=== PATIENT | male | born 1960 | race Two or more races ===

== ENCOUNTER 2017-02-08 13:13 | Emergency (ER) | payer OTHER ==
[2017-02-08 13:21] VITALS: PULSE 70; TEMP 98.2
--- NOTE | 2017-02-08 13:29 | EDPHY ---
H & P Stated Complaint: l side and abd pain/increased post working out last week Time Seen by Provider: 02/08/17 13:28 HPI/ROS: CHIEF COMPLAINT: Left flank and abdominal pain HISTORY OF PRESENT ILLNESS: The patient presents to the ED with a 6 day history of progressive left flank abdominal pain. The patient states his symptoms are mild in nature. They worsened with movement. It feels they have worsened after his exercise routine this week. His pain has been fairly constant for the past 2 days. He reports pain in his left sacroiliac area and some mild discomfort in his left lower abdominal quadrant. The patient denies any hematuria or dysuria. The patient denies fever, numbness or weakness. The patient denies any exertional chest pain or shortness of breath. The patient only has a past medical history significant for hypertension. REVIEW OF SYSTEMS: A comprehensive 10 point review of systems is otherwise negative aside from elements mentioned in the history of present illness. Source: Patient - Personal History Current Tetanus/Diphtheria Vaccine: Yes - Medical/Surgical History Hx Asthma: No Hx Chronic Respiratory Disease: No Hx Diabetes: No Hx Cardiac Disease: No Hx Renal Disease: No Hx Cirrhosis: No Hx Alcoholism: No Hx HIV/AIDS: No Hx Splenectomy or Spleen Trauma: No Other PMH: htn - Social History Smoking Status: Never smoked - Physical Exam Exam: General Appearance: Alert, no distress Eyes: Pupils equal and round no pallor or injection ENT, Mouth: Mucous membranes moist Respiratory: There are no retractions, lungs are clear to auscultation Cardiovascular: Regular rate and rhythm Gastrointestinal: Abdomen is soft and nontender, no masses, bowel sounds normal Back: Mild tenderness to palpation left sacroiliac joint Neurological: A&O, normal motor function, normal sensory exam, normal cranial nerves Skin: Warm and dry, no rashes Musculoskeletal: Neck is supple nontender Extremities: symmetrical, full range of motion Constitutional: Initial Vital Signs Temperature (C) 36.8 C 02/08/17 13:18 Heart Rate 70 02/08/17 13:18 Respiratory Rate 18 02/08/17 13:18 Blood Pressure 165/100 H 02/08/17 13:18 O2 Sat (%) 98 02/08/17 13:18 O2 Delivery Mode Room Air Allergies/Adverse Reactions: No Known Allergies Allergy (Unverified 02/08/17 13:18) Home Medications: Medication Instructions Recorded Losartan Potassium 02/08/17 SIMVASTATIN 02/08/17 Medical Decision Making - Diagnostics Imaging Results: Imaging Impressions Abdomen X-Ray 02/08/17 13:35 Impression: 1. Constipation. 2. Degenerative disk and facet arthropathy in the lower lumbar spine. ED Course/Re-evaluation: Patient presents to the ED with 6 days of very vague mild right left flank and left lower quadrant pain. The patient had only minimal tenderness on exam. The patient has normal bowel sounds. The patient is hemodynamically stable. The patient had an IV established. The patient was noted to have some mild microscopic hematuria. The remainder of his laboratory studies are normal. A KUB of his abdomen is also normal. I had a discussion with the patient about the etiology of his symptoms. It is certainly possible he may be experiencing mild renal colic. He has declined a CT scan for further evaluation. His KUB demonstrates no evidence of obvious nephrolithiasis. The patient tells me he does have a history of microscopic hematuria and was told 10 years ago no additional follow-up was indicated. The patient has not had regular follow-up with a primary care provider. I did tell the patient that I thought it would be reasonable to evaluate his symptoms further with a CT scan of the abdomen pelvis to exclude kidney stone versus other intra-abdominal pathology. The patient has declined the study. The patient is a competent decision maker. He does understand that I am not in a position to make further recommendations based upon the uncertainty of the diagnosis surrounding his presentation. It is certainly possible this is simply musculoskeletal pain. This could be a mild presentation of renal colic. The patient could certainly have a more significant process going on his abdomen. The patient would like to see how his symptoms developed over the next several days. He will follow up with his primary care provider. He understands he could return to the ED at any time should he reconsider his decision not to have additional imaging performed. Differential Diagnosis: Differential diagnosis considered includes constipation, hernia, nephrolithiasis , pyelonephritis, myofascial strain - Data Points Laboratory Results: Laboratory Results 02/08/17 13:50 02/08/17 13:50 02/08/17 02/08/17 02/08/17 13:50 13:50 13:50 WBC 6.53 10^3/uL 10^3/uL (3.80-9.50) RBC 5.54 10^6/uL 10^6/uL (4.40-6.38) Hgb 14.6 g/dL g/dL (13.7-17.5) Hct 44.2 % % (40.0-51.0) MCV 79.8 fL L fL (81.5-99.8) MCH 26.4 pg L pg (27.9-34.1) MCHC 33.0 g/dL g/dL (32.4-36.7) RDW 14.6 % % (11.5-15.2) Plt Count 220 10^3/uL 10^3/uL (150-400) MPV 10.0 fL fL (8.7-11.7) Neut % (Auto) 65.2 % % (39.3-74.2) Lymph % (Auto) 23.1 % % (15.0-45.0) [place] % (Auto) 10.3 % % (4.5-13.0) Eos % (Auto) 0.6 % % (0.6-7.6) Baso % (Auto) 0.5 % % (0.3-1.7) Nucleat RBC Rel Count 0.0 % % (0.0-0.2) Absolute Neuts (auto) 4.26 10^3/uL 10^3/uL (1.70-6.50) Absolute Lymphs (auto) 1.51 10^3/uL 10^3/uL (1.00-3.00) Absolute Monos (auto) 0.67 10^3/uL 10^3/uL (0.30-0.80) Absolute Eos (auto) 0.04 10^3/uL 10^3/uL (0.03-0.40) Absolute Basos (auto) 0.03 10^3/uL 10^3/uL (0.02-0.10) Absolute Nucleated RBC 0.00 10^3/uL 10^3/uL (0-0.01) Immature Gran % 0.3 % % (0.0-1.1) Immature Gran # 0.02 10^3/uL 10^3/uL (0.00-0.10) Sodium 139 mEq/L mEq/L (134-144) Potassium 3.9 mEq/L mEq/L (3.5-5.2) Chloride 102 mEq/L mEq/L (97-110) Carbon Dioxide 25 mEq/l mEq/l (22-31) Anion Gap 12 mEq/L mEq/L (8-16) BUN 15 mg/dL mg/dL (7-23) Creatinine 1.0 mg/dL mg/dL (0.7-1.3) Estimated GFR > 60 Glucose 110 mg/dL H mg/dL (70-100) Calcium 9.6 mg/dL mg/dL (8.5-10.4) Urine Color YELLOW Urine Appearance CLEAR Urine pH 6.0 (5.0-7.5) Ur Specific [place] 1.011 (1.002-1.030) Urine Protein NEGATIVE (NEGATIVE) Urine Ketones NEGATIVE (NEGATIVE) Urine Blood NEGATIVE (NEGATIVE) Urine Nitrate NEGATIVE (NEGATIVE) Urine Bilirubin NEGATIVE (NEGATIVE) Urine Urobilinogen NEGATIVE EU EU (0.2-1.0) Ur Leukocyte Esterase NEGATIVE (NEGATIVE) Urine RBC 5-10 /hpf H /hpf (0-3) Urine WBC 1-3 /hpf /hpf (0-3) Ur Epithelial Cells NONE SEEN /lpf /lpf (NONE-1+) Urine Glucose NEGATIVE (NEGATIVE) Departure - Departure Disposition: Home, Routine, Self-Care Clinical Impression: Abdominal pain Condition: Good Instructions: Abdominal Pain (ED) Additional Instructions: 1. Take Ibuprofen or Motrin 600 mg by mouth three times a day. 2. Please return to the emergency department for any worsening symptoms, fever, vomiting or other concerns. You have declined additional CT scan imaging in the emergency department. At this point time the etiology of your symptoms are uncertain. I do recommend following up with your primary care provider for a close recheck this week. You do have some blood in the urine which may require additional workup. Please discuss this with your primary care provider. Referrals: YOUSUF,UNKNOWN [Other] - As per Instructions
[2017-02-08 14:11] LABS: % IMMATURE GRANULYOCYTES 0.3 % (0.0-1.1); ABSOLUTE IMMATURE GRANULOCYTES 0.02 10^3/uL (0.00-0.10); ADD DIFF? NO; ADD MORPH? NO; ADD SCAN? NO; ATYPICAL LYMPHOCYTE FLAG 20 (0-99); FRAGMENT RBC FLAG 0 (0-99); HEMATOCRIT 44.2 % (40.0-51.0); HEMOGLOBIN 14.6 g/dL (13.7-17.5); LEFT SHIFT FLG 0 (0-99); LIPEMIA HEMOLYSIS FLAG 80 (0-99); MEAN CELL HEMOGLOBIN 26.4 pg (27.9-34.1); MEAN CELL VOLUME 79.8 fL (81.5-99.8); PLATELET CLUMPS FLAG 20 (0-99); PLATELET COUNT 220 10^3/uL (150-400); RED BLOOD CELL COUNT 5.54 10^6/uL (4.40-6.38); RED CELL DISTRIBUTION WIDTH 14.6 % (11.5-15.2)
[2017-02-08 14:17] LABS: COLOR YELLOW; LEUKOCYTE ESTERASE,URINE NEGATIVE (NEGATIVE); NITRITE,URINE NEGATIVE (NEGATIVE)
[2017-02-08 14:21] LABS: ANION GAP 12 mEq/L (8-16); CALCIUM 9.6 mg/dL (8.5-10.4); CARBON DIOXIDE 25 mEq/l (22-31); CHLORIDE 102 mEq/L (97-110); GLOMERULAR FILTRATION RATE > 60; GLUCOSE 110 mg/dL (70-100); POTASSIUM 3.9 mEq/L (3.5-5.2); SODIUM 139 mEq/L (134-144)
[2017-02-08 15:35] VITALS: BP 145/92; RESP 16; O2SAT 97
== END 2017-02-08 15:32 | disposition home or self-care (01) ==
DX: R10.9 Unspecified abdominal pain (principal); I10 Essential (primary) hypertension

== ENCOUNTER 2018-03-22 12:22 | Observation (INO) | payer OTHER ==
[2018-03-22 13:51] LABS: PLATELET COUNT 222 10^3/uL (150-400)
--- NOTE | 2018-03-22 13:57 | EDPHY ---
H & P Stated Complaint: "Pinching"feeling abd/chest~2wks;neg echo;stress test for Fri; wants it now Time Seen by Provider: 03/22/18 12:46 HPI/ROS: Chief Complaint: Chest pain HPI: 57-year-old male presenting with 10 days of waxing waning chest pain. Described as a central chest and upper abdominal pain, tightness. It varies from a 2/10 to a 6/10. There are no aggravating or alleviating factors. Does go away when he sleeping at night. Is not exertional. No fevers or chills or cough. He has seen his primary care physician last 2 weeks for this. He is known abnormal ECGs which he says have not changed. He had a similar symptoms about 10 years ago and actually been having this since he was in his 20s has had negative workups in the past. Ten years ago he was [facility] and had negative stress testing catheterization at that time. Denies any fevers or chills. No cough. No leg pain or swelling. No periods of immobility. He did have a normal echocardiogram at [facility] last week. He is scheduled for a stress test next week. He has been compliant with medications. ROS: 10 systems were reviewed and were negative except those elements noted in the HPI. PMH: Chest pain, hypertension Social History: No smoking, no alcohol, no recreational drug use Family History: non-contributory Physical Exam: Gen: Awake, Alert, No Distress HEENT: Nose: no rhinorrhea Eyes: PERRLA, EOMI Mouth: Moist mucosa Neck: Supple, no JVD Chest: nontender, lungs clear to auscultation Heart: S1, S2 normal, no murmur Abd: Soft, non-tender, no guarding Back: no CVA tenderness, no midline tenderness Ext: no edema, non-tender Skin: no rash Neuro: CN II-XII intact, Sensation grossly intact, Strength 5/5 in bilateral upper and lower extremities - Personal History Current Tetanus Diphtheria and Acellular Pertussis (TDAP): Yes - Medical/Surgical History Hx Asthma: No Hx Chronic Respiratory Disease: No Hx Diabetes: No Hx Cardiac Disease: No Hx Renal Disease: No Hx Cirrhosis: No Hx Alcoholism: No Hx HIV/AIDS: No Hx Splenectomy or Spleen Trauma: No Other PMH: hyperlipidemia, htn - Social History Smoking Status: Never smoked Constitutional: Initial Vital Signs Temperature (C) 36.9 C 03/22/18 12:25 Heart Rate 78 03/22/18 12:25 Respiratory Rate 16 03/22/18 12:25 Blood Pressure 159/87 H 03/22/18 12:25 O2 Sat (%) 98 03/22/18 12:25 O2 Delivery Mode Room Air Allergies/Adverse Reactions: No Known Allergies Allergy (Verified 03/22/18 12:27) Home Medications: Medication Instructions Recorded Losartan Potassium 02/08/17 SIMVASTATIN 02/08/17 Aspirin EC [Aspirin EC 81 mg (*)] 81 mg PO DAILY 03/22/18 Medical Decision Making - Diagnostics EKG Interpretation: ECG time 12:41 p.m., sinus rhythm with a rate of 74 normal intervals, there are T-wave inversions in 1 and aVL. There is also T-wave inversions in V3 through V6 with ST depression in V4 5 and 6 which is concerning. QRS complex is consistent with LVH. I have compared this to an ECG from 1 week ago and the T- wave inversions are old however the ST depression is new. I have also compared to an ECG from 10 years ago at which time he did not have any T-wave inversions. Imaging Results: Imaging Impressions Chest X-Ray 03/22/18 13:06 Impression: No acute findings in the chest. ED Course/Re-evaluation: 57-year-old male presenting with chest pain and ECG changes which are concerning. He has been seen by his primary care physician twice in last couple of weeks. Pain is atypical and is constant. However his ECG changes are very concerning. I have discussed with Cardiology TORSTEN. She will discuss with her attending. Patient discussed with Dr. Ross, cardiology. He is requesting the patient be admitted to the hospitalist service. He will consult. I have paged the hospitalist for admission. - Data Points Laboratory Results: Laboratory Results 03/22/18 13:33 03/22/18 13:33 03/22/18 03/22/18 03/22/18 13:40 13:33 13:33 WBC RBC Hgb Hct MCV MCH MCHC RDW Plt Count MPV Neut % (Auto) Lymph % (Auto) [place] % (Auto) Eos % (Auto) Baso % (Auto) Nucleat RBC Rel Count Absolute Neuts (auto) Absolute Lymphs (auto) Absolute Monos (auto) Absolute Eos (auto) Absolute Basos (auto) Absolute Nucleated RBC Immature Gran % Immature Gran # D-Dimer 0.31 ug/mLFEU ug/mLFEU (0.00-0.50) Sodium 139 mEq/L mEq/L (135-145) Potassium 4.2 mEq/L mEq/L (3.3-5.0) Chloride 101 mEq/L mEq/L (97-110) Carbon Dioxide 26 mEq/l mEq/l (22-31) Anion Gap 12 mEq/L mEq/L (8-16) BUN 17 mg/dL mg/dL (7-23) Creatinine 1.0 mg/dL mg/dL (0.7-1.3) Estimated GFR > 60 Glucose 129 mg/dL H mg/dL (70-100) Calcium 9.7 mg/dL mg/dL (8.5-10.4) POC Troponin I 0.01 ng/mL ng/mL (0.00-0.08) 03/22/18 13:33 WBC 7.41 10^3/uL 10^3/uL (3.80-9.50) RBC 6.07 10^6/uL 10^6/uL (4.40-6.38) Hgb 15.5 g/dL g/dL (13.7-17.5) Hct 46.9 % % (40.0-51.0) MCV 77.3 fL L fL (81.5-99.8) MCH 25.5 pg L pg (27.9-34.1) MCHC 33.0 g/dL g/dL (32.4-36.7) RDW 14.3 % % (11.5-15.2) Plt Count 222 10^3/uL 10^3/uL (150-400) MPV 10.2 fL fL (8.7-11.7) Neut % (Auto) 76.5 % H % (39.3-74.2) Lymph % (Auto) 14.0 % L % (15.0-45.0) [place] % (Auto) 8.0 % % (4.5-13.0) Eos % (Auto) 0.4 % L % (0.6-7.6) Baso % (Auto) 0.3 % % (0.3-1.7) Nucleat RBC Rel Count 0.0 % % (0.0-0.2) Absolute Neuts (auto) 5.67 10^3/uL 10^3/uL (1.70-6.50) Absolute Lymphs (auto) 1.04 10^3/uL 10^3/uL (1.00-3.00) Absolute Monos (auto) 0.59 10^3/uL 10^3/uL (0.30-0.80) Absolute Eos (auto) 0.03 10^3/uL 10^3/uL (0.03-0.40) Absolute Basos (auto) 0.02 10^3/uL 10^3/uL (0.02-0.10) Absolute Nucleated RBC 0.00 10^3/uL 10^3/uL (0-0.01) Immature Gran % 0.8 % % (0.0-1.1) Immature Gran # 0.06 10^3/uL 10^3/uL (0.00-0.10) D-Dimer Sodium Potassium Chloride Carbon Dioxide Anion Gap BUN Creatinine Estimated GFR Glucose Calcium POC Troponin I Point of Care Test Results: Chemistry 03/22/18 13:40 POC Troponin I 0.01 ng/mL ng/mL (0.00-0.08) Departure - Departure Disposition: [facility] Inpatient Acute Clinical Impression: Chest pain Condition: Fair Referrals: Marshal Avelar MD [Primary Care Provider] - As per Instructions
[2018-03-22] MEDS ORDERED: LIDOCAINE 1% 300 MG/30 ML SDV ONE (15:00)
[2018-03-22] MEDS ORDERED: MIDAZOLAM 2 MG/2 ML VIAL ONE (15:00)
[2018-03-22] MEDS ORDERED: IOPAMIDOL (ISOVUE-370) 150 ML BTL IV ONE (15:00)
[2018-03-22] MEDS ORDERED: fentaNYL 100 MCG/2 ML INJ ONE (15:00)
--- NOTE | 2018-03-22 15:03 | CPEKG ---
Test Reason : OPEN Blood Pressure : / mmHG Vent. Rate : 074 BPM Atrial Rate : 074 BPM P-R Int : 174 ms QRS Dur : 099 ms QT Int : 414 ms P-R-T Axes : 040 -18 147 degrees QTc Int : 460 ms Sinus rhythm Probable left atrial enlargement LVH with secondary repolarization abnormality Anterior Q waves, possibly due to LVH Confirmed by Jason Gamez ([id number]) on 03/22/2018 3:03:20 PM Referred By: Confirmed By:Jason Gamez
[2018-03-22] MEDS ORDERED: ONDANSETRON DISINTEGRATING 4 MG TAB PO PRN (15:04)
[2018-03-22] MEDS ORDERED: ONDANSETRON 4 MG/2 ML VIAL IVP PRN (15:04)
[2018-03-22] MEDS ORDERED: D5W 1/2 NS 1,000 ML IV SCH (15:15)
[2018-03-22] MEDS ORDERED: ONDANSETRON 4 MG/2 ML VIAL ONE (15:20)
[2018-03-22] MEDS ORDERED: FAMOTIDINE 20 MG/NACL/50 ML BAG IV ONE (15:20)
--- NOTE | 2018-03-22 16:02 | ECHO ---
[email or web address] [address] [address] Main: [phone] Fax: Transthoracic Echocardiogram Name: MARCELLUS GAMBOA MR#: [id number] Study Date: 03/22/2018 Study Time: 02:38 PM Date of : 1960 Age: 57 year(s) Height: 172.7 cm (68 in.) Weight: 84.37 kg (186 lb.) BSA: 1.98 m2 Gender: Male Examination: Echo Indication: Chest Pain Image Quality: Adequate Contrast: Requested by: Neena Neville BP: 132 mmHg/82 mmHg Heart Rate: Rhythm: Indication: Chest Pain Procedure Staff Case Manager Specialist: Shahla Mccullough [facility] Reading Physician: Juan Antonio Ross MD Requesting Provider: Conclusions: Normal global systolic LV function. EF is 62 %. Mild mitral valve regurgitation is present. Mild aortic valve regurgitation is present. Trivial pulmonic valve regurgitation. Measurements: Chambers Valvular Assessment AV/MV Valvular Assessment TV/PV Normal Normal Normal Name Value Range Name Value Range Name Value Range Ao Madie (2D): 3.5 cm (1.4 cm-2.6 AV Vmax: 1.79 m/s (1 m/s-1.7 PV Vmax: 1.03 m/s (0.6 m/s-0.9 cm) m/s) m/s) IVSd (2D): 1.7 cm (0.6 cm-1.1 AV maxP mmHg ( - ) PV PGmax: 4 mmHg ( - ) cm) AV meanP mmHg ( - ) LVDd (2D): 3.8 cm (4.2 cm-5.9 LVOT Vmax: 1.48 m/s (0.7 m/s-1.1 cm) m/s) LVDs (2D): 2.5 cm (2.1 cm-4 DELMIS (Vmax): 2.6 cm2 ( - ) cm) DELMIS (VTI): 2.3 cm ( - ) LVPWd (2D): 1.4 cm (0.6 cm-1 MV E Vmax: 0.72 m/s ( - ) cm) MV A Vmax: 0.78 m/s ( - ) LVOTd 2.0 cm 2.0 cm mm MV E/A: 0.92 ( - ) LVEF (BP): 62 % (>=55 %) MV PHT: 0.078 s ( - ) RVDd(2D): 2.8 cm (1.9 cm-3.8 cmmm) MVA (PHT): 2.8 s ( - ) Continued Measurements: Chambers Valvular Assessment AV/MV Name Value Name Value LADs: 3.0 cm MV DecTime: 246 m/s Patient: MARCELLUS GAMBOA Study Date: 03/22/2018 Page 1 of 2 02:38 PM LADs Lon.7 cm MV E/E' Septal: 12.50 LA Area: 13.9 cm2 MV E/E' Lateral: 6.00 LA Volume: 34 ml LA Volume Index: 17.2 ml/m2 RA Area: 14.8 cm2 Additional Vessels Name Value Ao Ascendin.3 cm Inferior Vena Cava: 1.2 cm Findings: Left Ventricle: Normal size left ventricle. Moderate concentric LV hypertrophy. Normal global systolic LV function. EF is 62 %. No regional wall motion abnormality. Normal diastolic LV function. Right Ventricle: Normal size right ventricle. Normal RV function. Left Atrium: The left atrium is normal in size. Right Atrium: The right atrium is normal in size. Mitral Valve: The mitral valve is normal in appearance and function. Mild mitral valve regurgitation is present. No mitral stenosis is present. Aortic Valve: The aortic valve is tri-leaflet. Aortic sclerosis is present. Mild aortic valve regurgitation is present. No aortic valve stenosis is present. Tricuspid Valve: The tricuspid valve is normal in appearance and function. Trivial tricuspid valve regurgitation. Pulmonic Valve: The pulmonic valve is normal in appearance and function. Trivial pulmonic valve regurgitation. Aorta: The aorta is normal. Normal size aortic root measuring 3.5 cm. Normal size ascending aorta measuring 3.3 cm. IVC: The IVC is normal sized. Pericardium: Trivial pericardial effusion. No pleural effusion. (No Signature Object) Patient: MARCELLUS GAMBOA Study Date: 03/22/2018 Page 2 of 2 02:38 PM [id number]
--- NOTE | 2018-03-22 16:53 | GCON ---
DATE OF CONSULTATION: 03/22/2018 CHIEF COMPLAINT: Chest/abdominal pain. HISTORY OF PRESENT ILLNESS: This is a [age]-year-old male with history of hypertension who presented t [facility] ER with complaints of not feeling well/chest pain and abdominal discomfort for 3-4 weeks' time. Of note, the patient's baseline ECG was grossly abnormal with diffuse T-wave inversions through the anterior leads. The patient actually had an image of his old EKG of 10 years ago and this new EKG is clearly different than his old ECG with these new inversions. His troponin has been negative x1 set. His blood pressure was somewhat elevated at 150/100 on admission. He denies any discomfort at exertio n, however, this morning when he woke up, he described the pain as left-sided underneath his left n[address]. It was reproducible with deep palpation, however, given the severity of the discomfort, he decide d to come to the emergency room for further evaluation. Currently, the patient ranks his pain at 2/10 and more crampy than sharp. Blood pressure currently 130/70 with a heart rate of 72, respiratory rat e 12, satting 95% on room air. PAST MEDICAL HISTORY: Significant for hypertension. HOME MEDICATIONS: Please see patient's attached chart. SOCIAL HISTORY: No drinking, no smoking. FAMILY HISTORY: Noncontributory. REVIEW OF SYSTEMS: Currently denies any visual changes. No headache. No throat pain. No swallowing d ifficulties. No shortness of breath. No back pain. He does indicate having dull 2/10 chest pain right under the left breast area. No abdominal discomfort currently. No lower extremity pain. No lower ext remity numbness or tingling. PHYSICAL EXAM: VITAL SIGNS: Patient is currently afebrile at 98.6,, blood pressure is currently 130/ 72, with a heart rate of 72, respirations 12, satting 95% on room air. HEENT: Pupils equal, round and reactive to light and accommodation. EOMs intact. CARDIOVASCULAR: Regular rate and rhythm, S1 and S2 . LUNGS: Clear to auscultation bilaterally. ABDOMEN: Soft, nontender, no guarding. EXTREMITIES: No cl ubbing, no cyanosis, no edema. NEUROLOGIC: The patient is alert x3. LABORATORY VALUES: Currently troponin negative x1 set. ECG shows sinus rhythm with diffuse T-wave inversions throughout the anterior leads. ASSESSMENT/PLAN: Chest pain/abnormal EKG: At this time, I have discussed with the patient about pote ntial options given his current situation. He is adamant that he would like to reduce his risk from r adiation as much as possible. I have explained about performing a nuclear stress test versus coronary CTA versus heart catheterization. He feels that he would not like to undergo 2 separate radiation-re lated procedures, i.e., stress testing followed by catheter CTA, followed by catheterization. He is a greeable to proceeding with a left heart catheterization given his current symptoms as well as abnorm al ECG. I have explained the risks of performing of the said procedure including bleeding, perforatio n, stroke, radiation risks and possible , and he would like to proceed. We will proceed with thi s procedure within the next hour. /[id number]/MODL
--- NOTE | 2018-03-22 18:09 | CPIP ---
DATE OF PROCEDURE: 03/22/2018 INDICATIONS: Abnormal ECG, chest pain. PROCEDURE: 1. Nonselective right groin sheathogram. 2. Bilateral coronary angiography. 3. Left heart catheterization. DETAILS OF PROCEDURE: Briefly, this is a 57-year-old male with history of recent chest discomfort wi th grossly abnormal EKG with T-wave inversions throughout the anterior leads. Given the patient's fi ndings, patient was consented for left heart catheterization. Of note, the patient requested minimal radiation usage secondary to a history of receiving multiple CT scans. Frame rate was reduced to lo w with 7.5 FPS with a care to reduce any cine angiography. After informed consent was obtained, the patient was brought to [facility]. The right groin was prepped and draped in sterile f ashion. Using lidocaine, a short 6-Vietnamese sheath was introduced into the right femoral artery, verif ied angiographically. Through the 6-Vietnamese sheath, a JR4 catheter was advanced to the left coronary artery. Images of the left coronary artery showed normal left main. Left circumflex artery gave off a small marginal 1 proximally. Distally the vessel terminated to a marginal 2 artery, which was hea lthy and free of disease. The LAD was a long vessel, which wrapped around the apex. The LAD had mil d plaque disease in its midportion after the takeoff of a large medium-sized diagonal artery. After these images were obtained, the JL4 catheter was removed. A JR4 catheter was advanced in the right c oronary artery. Images of right coronary artery revealed normal os prox RCA. Mid RCA had 20% to 30% plaque disease. The distal RPDA and RPLS appeared to be widely patent. The JR4 catheter was remove d. The pigtail catheter advanced to left ventricle. EDP was 15 mmHg. No ventriculogram was obtaine d. The pigtail catheter was then removed with no pullback gradient between the LV and the aorta. Pi gtail catheter was removed over a 0.035 wire. Right groin was closed with manual pressure. Patient tolerated the procedure well. No complications. IMPRESSION: 1. Nonobstructive mild coronary artery disease in the mid left anterior descending and mid right cor onary artery, ranging approximately 20% to 30%. 2. Normal left ventricular end-diastolic pressure. PLAN: The patient's pain is not coming from a coronary etiology. Minimal radiation was utilized dur ing this case. Potential etiologies of the patient's pain include musculoskeletal versus GI. /[id number]/MODL
[2018-03-22] MEDS: ACETAMINOPHEN 325 MG TAB PO PRN (18:48)
[2018-03-22] MEDS ORDERED: MAG HYDROX/AL HYDROX/SIMETH 30 ML UDCUP PO PRN (18:48)
[2018-03-22] MEDS ORDERED: CALCIUM CARBONATE 500 MG CHEWABLE TAB PO PRN (18:49)
--- NOTE | 2018-03-22 18:52 | PDGENHP ---
History and Physical - Chief Complaint Acute chest pain - History of Present Illness Primary care provider: Dr. Marshal Avelar HPI: 57-year-old male presents with acute chest pain located in the central area of his chest characterized as 2/10 waxing and waning discomfort with onset of symptoms approximately 10 days ago and duration persistent thereafter. Is associated with a sensation of tightness and is not impacted by swallowing. He reports that he does experience associated shortness of breath with cardiovascular exercise after approximately 10 min. He reports that he does routinely lift overhead weights, and does bench press, but he does not routinely experience muscle soreness after his workouts. He denies any recent trauma to the chest. He was seen in his primary care provider office for this issue approximately 10 days ago, had an EKG at that time. Of note, the patient has not been using any reflux medications recently. History Information - Allergies/Home Medication List Allergies/Adverse Reactions: No Known Allergies Allergy (Verified 03/22/18 12:27) Home Medications: Losartan Potassium [Cozaar 25 mg (*)] 12.5 mg PO DAILY 02/08/17 [Last Taken 01/30 08:00] Simvastatin 20 mg PO HS 02/08/17 [Last Taken 03/21/18 21:00] Aspirin EC [Aspirin EC 81 mg (*)] 81 mg PO HS 03/22/18 [Last Taken 03/21/18 21: 00] Calcium Carb W/Vit D [Calcium Carb W/Vit D 500/200 (*)] 500 mg PO DAILY@03/22 [Last Taken 03/21/18] Cholecalciferol Vit D3 [Vitamin D3 (*)] 1,000 units PO DAILY@03/22/18 [Last Taken 03/21/18] [place]-3 Fatty Acids [Fish Oil 1000 mg (*)] 1,000 mg PO DAILY 03/22/18 [Last Taken 03/22/18 08:00] Tears/Dextran 70/Hypromellose [Natural Balance Tears (*)] 1 drop EACHEYE BID 01/30 [Last Taken 03/21/18] I have personally reviewed and updated: family history, medical history, social history, surgical history - Past Medical History GERD (With approximately 3 months of reflux medications then discontinued after symptoms abated), hypertension Additional medical history: Atypical chest pain experienced 10 years ago with extensive workup at [facility] including stress test, CT imaging of the chest abdomen and upper endoscopy. 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 Cardiac catheterization 10 years ago reportedly clean - Family History Additional family history: No family history of GI malignancy - Social History Smoking Status: Never smoked Alcohol Use: None Drug Use: None Additional social history: He reports that he exercises 5 days a week, engages in some cardiovascular exercise up to 10 min, utilizes overhead weights Review of Systems Review of Systems: ROS: 10pt was reviewed & negative except for what was stated in HPI & below Cardiac: Reports: chest pain Physical Exam Physical Exam: Temp Pulse Resp BP Pulse Ox 36.9 C 82 16 107/70 99 03/22/18 12:25 03/22/18 15:14 03/22/18 17:25 03/22/18 17:15 03/22/18 17:25 Constitutional: no apparent distress, appears nourished, not in pain Eyes: PERRL, anicteric sclera, EOMI Ears, Nose, Mouth, Throat: moist mucous membranes, hearing normal, ears appear normal, no oral mucosal ulcers Cardiovascular: regular rate and rhythym, no murmur, rub, or gallop, No edema Respiratory: no respiratory distress, no rales or rhonchi, clear to auscultation Gastrointestinal: normoactive bowel sounds, soft, non-tender abdomen, no palpable masses, No hepatosplenomegally Skin: warm, No erythema, No rash (Over chest) Musculoskeletal: other (No tenderness bilateral pectoralis muscles, full range of motion bilateral shoulders without any pain elicited) Neurologic: AAOx3, No facial droop Psychiatric: interacting appropriately, not anxious, not encephalopathic, thought process linear Lab Data & Imaging Review 03/22/18 13:33 03/22/18 13:33 WBC 7.41 10^3/uL (3.80-9.50) 03/22/18 13:33 RBC 6.07 10^6/uL (4.40-6.38) 03/22/18 13:33 Hgb 15.5 g/dL (13.7-17.5) 03/22/18 13:33 Hct 46.9 % (40.0-51.0) 03/22/18 13:33 MCV 77.3 fL (81.5-99.8) L 03/22/18 13:33 MCH 25.5 pg (27.9-34.1) L 03/22/18 13:33 MCHC 33.0 g/dL (32.4-36.7) 03/22/18 13:33 RDW 14.3 % (11.5-15.2) 03/22/18 13:33 Plt Count 222 10^3/uL (150-400) 03/22/18 13:33 MPV 10.2 fL (8.7-11.7) 03/22/18 13:33 Neut % (Auto) 76.5 % (39.3-74.2) H 03/22/18 13:33 Lymph % (Auto) 14.0 % (15.0-45.0) L 03/22/18 13:33 [place] % (Auto) 8.0 % (4.5-13.0) 03/22/18 13:33 Eos % (Auto) 0.4 % (0.6-7.6) L 03/22/18 13:33 Baso % (Auto) 0.3 % (0.3-1.7) 03/22/18 13:33 Nucleat RBC Rel Count 0.0 % (0.0-0.2) 03/22/18 13:33 Absolute Neuts (auto) 5.67 10^3/uL (1.70-6.50) 03/22/18 13:33 Absolute Lymphs (auto) 1.04 10^3/uL (1.00-3.00) 03/22/18 13:33 Absolute Monos (auto) 0.59 10^3/uL (0.30-0.80) 03/22/18 13:33 Absolute Eos (auto) 0.03 10^3/uL (0.03-0.40) 03/22/18 13:33 Absolute Basos (auto) 0.02 10^3/uL (0.02-0.10) 03/22/18 13:33 Absolute Nucleated RBC 0.00 10^3/uL (0-0.01) 03/22/18 13:33 Immature Gran % 0.8 % (0.0-1.1) 03/22/18 13:33 Immature Gran # 0.06 10^3/uL (0.00-0.10) 03/22/18 13:33 D-Dimer 0.31 ug/mLFEU (0.00-0.50) 03/22/18 13:33 Sodium 139 mEq/L (135-145) 03/22/18 13:33 Potassium 4.2 mEq/L (3.3-5.0) 03/22/18 13:33 Chloride 101 mEq/L (97-110) 03/22/18 13:33 Carbon Dioxide 26 mEq/l (22-31) 03/22/18 13:33 Anion Gap 12 mEq/L (8-16) 03/22/18 13:33 BUN 17 mg/dL (7-23) 03/22/18 13:33 Creatinine 1.0 mg/dL (0.7-1.3) 03/22/18 13:33 Estimated GFR > 60 03/22/18 13:33 Glucose 129 mg/dL (70-100) H 03/22/18 13:33 Calcium 9.7 mg/dL (8.5-10.4) 03/22/18 13:33 Total Bilirubin 0.4 mg/dL (0.1-1.4) 03/22/18 13:33 Conjugated Bilirubin 0.2 mg/dL (0.0-0.5) 03/22/18 13:33 Unconjugated Bilirubin 0.2 mg/dL (0.0-1.1) 03/22/18 13:33 AST 31 IU/L (17-59) 03/22/18 13:33 ALT 37 IU/L (21-72) 03/22/18 13:33 Alkaline Phosphatase 50 IU/L (38-126) 03/22/18 13:33 POC Troponin I 0.01 ng/mL (0.00-0.08) 03/22/18 13:40 Total Protein 7.6 g/dL (6.3-8.2) 03/22/18 13:33 Albumin 4.9 g/dL (3.5-5.0) 03/22/18 13:33 Visualized and Interpreted Chest x-ray results: Yes Chest X-Ray results: no infiltrate Visualized and Interpreted EKG results: Yes EKG Interpretation: Positive for: normal sinsus rhythm, other (T-wave inversions in leads V3 through V6, 1/aVL) Assessment & Plan Assessment: 57-year-old male presents with acute chest pain Plan: 1. Chest pain. Acute, new problem this provider, further workup indicated. Potential etiologies include gastroesophageal reflux disease versus bronchogenic cyst -acute coronary syndrome ruled out with cardiac catheterization demonstrating minimal coronary artery disease, 20-30% -discussed with Dr. Ross, he and I both agree that most likely cause is gastroesophageal reflux or musculoskeletal -that being said, the patient did have a bronchogenic cyst identified approximately 10 years ago, received appropriate surveillance imaging over the span of approximately 1 year, and has not had any imaging since, now the patient has had recurrence of discomfort in this exact same area which elicited pain 10 years ago, I think it is prudent to repeat his imaging and ensure that the cyst is not enlarged comma is not compressing any vital organs, will proceed with chest MRI in a.m. And if comparison study is required, the patient does have a CD image available at home -empirically provide proton pump inhibitor tonight, treat any recurrent chest pain with GI cocktail and Tums 2. Hypertension. Chronic, continue home medication 3. Coronary artery disease. Chronic, as noted above, 20-30% on cardiac catheterization, secondary prevention indicated -patient reports recent lipid panel but I am only able to identify most recent LDL in August of 2016, was 106 at that time -outside records reviewed including hemoglobin A1c from 12/05/2016 at 6.4%, indicating prediabetic state -will check LDL and hemoglobin A1c in a.m., optimize his medical management with statin, aspirin 81, diabetic counseling if applicable Diet. Cardiac Prophylaxis. Low risk, SCDs Code. Full Disposition. Anticipated discharge is 03/23, pending further workup as outlined above.
[2018-03-22] MEDS: PANTOPRAZOLE SODIUM 40 MG TAB PO SCH (20:01)
[2018-03-22] MEDS: TEARS/DEXTRAN 70/HYPROMELLOSE 15 ML OPHT.BTL EACHEYE SCH (20:08)
[2018-03-22] MEDS ORDERED: ATORVASTATIN CALCIUM 10 MG TAB PO SCH (21:00)
[2018-03-22] MEDS ORDERED: ASPIRIN EC 81 MG TAB PO SCH (21:00)
--- NOTE | 2018-03-23 07:16 | PDCARPN ---
Cardiology Progress Note Chief Complaint: CP/abd pain Assessment/Plan: Assessment: CP abd pain Plan: 03/23/18 07:15 LHC showed minimal plaque disease EF NL Pain most likely musculo-skeletal vs GI Will follow prn Subjective: feels better Reviewed/Discussed With: multidisciplinary team Time Spent with Patient: greater than 25 minutes Time Spent with Patient: Greater than 25 minutes spent on this patients care, greater than 50% of time spent counseling, educating, and coordinating care regarding the above mentioned plan. Objective: Vital Signs (8 Hrs) Temp Pulse Resp BP Pulse Ox 03/23/18 03:47 36.6 C 49 L 16 102/59 L 95 Intake/Output (24 Hrs) 03/22/18 03/23/18 03/24/18 05:59 05:59 05:59 Intake Total 500 Balance 500 Intake: Oral (ml) 200 IV Intake (ml) 300 Other: Weight 84.3 kg Number of Voids Urinal 1 Result Diagrams: 03/22/18 13:33 03/23/18 03:28 - Physical Exam Constitutional: no apparent distress Eyes: PERRL Ears, Nose, Mouth, Throat: moist mucous membranes Cardiovascular: regular rate and rhythm Peripheral Pulses: 1+: femoral (R), femoral (L) Respiratory: clear to auscultate bilat Gastrointestinal: normoactive bowel sounds Genitourinary: no suprapubic tenderness Skin: no rashes Musculoskeletal: no muscular tenderness Neurologic: AAOx3 Psychiatric: cooperative ICD10 Worksheet Patient Problems: Problems Problem Status Onset Chest pain Acute
[2018-03-23] MEDS: PANTOPRAZOLE SODIUM 40 MG TAB PO SCH (08:14)
[2018-03-23] MEDS: TEARS/DEXTRAN 70/HYPROMELLOSE 15 ML OPHT.BTL EACHEYE SCH (08:15)
[2018-03-23] MEDS ORDERED: LOSARTAN POTASSIUM 25 MG TAB PO SCH (09:00)
[2018-03-23] MEDS ORDERED: OMEGA-3 FATTY ACIDS 1,000 MG CAP PO SCH (09:00)
[2018-03-23] MEDS ORDERED: CHOLECALCIFEROL VIT D3 1,000 UNITS TAB PO SCH (15:00)
[2018-03-23] MEDS ORDERED: CALCIUM CARB W/VIT D 500 MG TAB PO SCH (15:00)
[2018-03-23] MEDS ORDERED: GADOBUTROL 10 ML VIAL IVP ONE (15:48)
[2018-03-23 16:44] VITALS: BP 142/68
[2018-03-23] MEDS: ACETAMINOPHEN 325 MG TAB PO PRN (17:04)
== END 2018-03-23 17:38 | disposition home or self-care (01) ==
LOC: F2W 17:49
PROVIDERS: ADMIT Internal Medicine; ATTEND Internal Medicine
PROC: 4A023N7 Measurement of Cardiac Sampling and Pressure, Left Heart, Percutaneous Approach (ICD-10-PCS; principal; 2018-03-22)
DX: I25.10 Atherosclerotic heart disease of native coronary artery without angina pectoris (principal); I10 Essential (primary) hypertension; E78.5 Hyperlipidemia, unspecified
CPT/HCPCS: 71046; 71552; 93005; 93306; 93458; 99285; G0378; 84484-PO; A9585; J1200; J1644; J2250; J2405; J3010; Q9967

== ENCOUNTER 2018-04-29 00:46 | Emergency (ER) | payer OTHER ==
[2018-04-29] MEDS ORDERED: NS 1,000 ML IV ONE (01:05)
[2018-04-29] MEDS ORDERED: FAMOTIDINE 20 MG/NACL 50 ML IV ONE (01:05)
[2018-04-29] MEDS ORDERED: ONDANSETRON 4 MG/2 ML VIAL IVP ONE (01:05)
[2018-04-29 01:17] LABS: PLATELET COUNT 221 10^3/uL (150-400)
--- NOTE | 2018-04-29 01:29 | EDPHY ---
H & P Stated Complaint: PT DUE TO HAVE COLONOSOCPY IN AM. DRINKING PREP NOW N,V Time Seen by Provider: 04/29/18 00:52 HPI/ROS: HPI The patient presents with epigastric abdominal pain that began about 1 hr prior to presentation. The patient has been dealing with abdominal pain ever since he was discharged from the hospital about 1 month ago for chest pain. He has an appointment tomorrow morning for EGD and colonoscopy and was drinking his bowel prep starting at about 5:00 p.m. Last night. He drank 32 oz and tried to go to bed but had ongoing abdominal pain that became progressively worse and severe about 1 hr ago. It is a burning pain that does not radiate. He began to vomit about 30 min ago nonbloody nonbilious emesis. He has been taking a PPI for the last 1 month for his symptoms with minimal improvement. He reports that he had an outpatient MRI performed a few weeks ago of his abdomen which was normal. I do not have access to this report. He does not have any dark or bloody stools. REVIEW OF SYSTEMS 10 systems were reviewed and negative with the exception of the elements mentioned in the history of present illness. PMHx: Recent admission for chest pain, ultimately thought to be atypical, echo showing LVH, cardiac catheterization showing mild CAD Soc Hx: Housed PHYSICAL General Appearance: Alert, no distress Eyes: Pupils equal and round no pallor or injection ENT, Mouth: Mucous membranes moist Respiratory: There are no retractions, lungs are clear to auscultation Cardiovascular: Regular rate and rhythm Gastrointestinal: Abdomen is soft and tender in the epigastrium without rebound or guarding, no masses, bowel sounds normal Neurological: A&O, moves all extremities Skin: Warm and dry, no rashes Musculoskeletal: Neck is supple non tender Extremities: symmetrical, full range of motion Psychiatric: Patient is oriented X 3, there is no agitation Source: Patient Exam Limitations: No limitations - Personal History Current Tetanus/Diphtheria Vaccine: Yes Current Tetanus Diphtheria and Acellular Pertussis (TDAP): Yes - Medical/Surgical History Hx Asthma: No Hx Chronic Respiratory Disease: No Hx Diabetes: No Hx Cardiac Disease: No Hx Renal Disease: No Hx Cirrhosis: No Hx Alcoholism: No Hx HIV/AIDS: No Hx Splenectomy or Spleen Trauma: No Other PMH: hyperlipidemia, htn, prediabetic, Bronchogenic cyst. - Social History Smoking Status: Never smoked Constitutional: Initial Vital Signs Temperature (C) 36.9 C 04/29/18 00:50 Heart Rate 99 04/29/18 00:50 Respiratory Rate 18 04/29/18 00:50 Blood Pressure 173/91 H 04/29/18 00:50 O2 Sat (%) 97 04/29/18 00:50 O2 Delivery Mode Room Air Allergies/Adverse Reactions: No Known Allergies Allergy (Verified 03/22/18 12:27) Home Medications: Medication Instructions Recorded Losartan Potassium [Cozaar 25 mg 12.5 mg PO DAILY 02/08/17 (*)] Simvastatin 20 mg PO HS 02/08/17 Aspirin EC [Aspirin EC 81 mg (*)] 81 mg PO HS 03/22/18 Calcium Carb W/Vit D [Calcium Carb 500 mg PO DAILY@15 03/22/18 W/Vit D 500/200 (*)] Cholecalciferol Vit D3 [Vitamin D3 1,000 units PO DAILY@15 03/22/18 (*)] [place]-3 Fatty Acids [Fish Oil 1000 1,000 mg PO DAILY 03/22/18 mg (*)] Tears/Dextran 70/Hypromellose 1 drop EACHEYE BID 03/22/18 [Natural Balance Tears (*)] Pantoprazole Sodium [Protonix 40mg 40 mg PO DAILY #30 tab 03/23/18 (*)] Medical Decision Making Differential Diagnosis: 58-year-old male with about 1 month of intermittent epigastric abdominal pain, scheduled for EGD and colonoscopy tomorrow presents with nausea, vomiting, abdominal pain after drinking his bowel prep tonight. On exam, vital signs are normal, he is uncomfortable appearing, he does have epigastric tenderness. The patient was given IV fluids and medication for his symptoms and felt better. Labs were checked and revealed a very mildly elevated lipase which I attribute to his vomiting. His repeat abdominal exam was benign. He is quite motivated to have his endoscopy and colonoscopy later today. Given that he has been dealing with this pain for several months now, with normal imaging so far, I do feel that this test would be helpful. He would like to be discharged and I will send him home with Zofran 0 DT to take prior to finishing his bowel prep. He will be seeing GI later today. Differential diagnosis includes gastritis, GERD, gastroenteritis, less likely pancreatitis given no risk factors. - Data Points Laboratory Results: Laboratory Results 04/29/18 01:10 04/29/18 01:10 04/29/18 04/29/18 01:10 01:10 WBC 6.56 10^3/uL 10^3/uL (3.80-9.50) RBC 5.47 10^6/uL 10^6/uL (4.40-6.38) Hgb 14.2 g/dL g/dL (13.7-17.5) Hct 41.9 % % (40.0-51.0) MCV 76.6 fL L fL (81.5-99.8) MCH 26.0 pg L pg (27.9-34.1) MCHC 33.9 g/dL g/dL (32.4-36.7) RDW 14.0 % % (11.5-15.2) Plt Count 221 10^3/uL 10^3/uL (150-400) MPV 9.2 fL fL (8.7-11.7) Neut % (Auto) 57.4 % % (39.3-74.2) Lymph % (Auto) 29.6 % % (15.0-45.0) [place] % (Auto) 11.0 % % (4.5-13.0) Eos % (Auto) 1.5 % % (0.6-7.6) Baso % (Auto) 0.3 % % (0.3-1.7) Nucleat RBC Rel Count 0.0 % % (0.0-0.2) Absolute Neuts (auto) 3.77 10^3/uL 10^3/uL (1.70-6.50) Absolute Lymphs (auto) 1.94 10^3/uL 10^3/uL (1.00-3.00) Absolute Monos (auto) 0.72 10^3/uL 10^3/uL (0.30-0.80) Absolute Eos (auto) 0.10 10^3/uL 10^3/uL (0.03-0.40) Absolute Basos (auto) 0.02 10^3/uL 10^3/uL (0.02-0.10) Absolute Nucleated RBC 0.00 10^3/uL 10^3/uL (0-0.01) Immature Gran % 0.2 % % (0.0-1.1) Immature Gran # 0.01 10^3/uL 10^3/uL (0.00-0.10) Sodium 132 mEq/L L mEq/L (135-145) Potassium 3.9 mEq/L mEq/L (3.3-5.0) Chloride 95 mEq/L L mEq/L (97-110) Carbon Dioxide 24 mEq/l mEq/l (22-31) Anion Gap 13 mEq/L mEq/L (6-14) BUN 11 mg/dL mg/dL (7-23) Creatinine 1.1 mg/dL mg/dL (0.7-1.3) Estimated GFR > 60 Glucose 126 mg/dL H mg/dL (70-100) Calcium 9.7 mg/dL mg/dL (8.5-10.4) Total Bilirubin 1.0 mg/dL mg/dL (0.1-1.4) Conjugated Bilirubin 0.1 mg/dL mg/dL (0.0-0.5) Unconjugated Bilirubin 0.9 mg/dL mg/dL (0.0-1.1) AST 27 IU/L IU/L (17-59) ALT 32 IU/L IU/L (21-72) Alkaline Phosphatase 50 IU/L IU/L (38-126) Total Protein 7.1 g/dL g/dL (6.3-8.2) Albumin 4.6 g/dL g/dL (3.5-5.0) Lipase 304 IU/L H IU/L (23-300) Medications Given: Discontinued Medications Al Hydroxide/Mg Hydroxide (Maalox Susp) 30 ml PO ONCE ONE Stop: 04/29/18 01:33 Last Admin: 04/29/18 01:37 Dose: 30 ml Hyoscyamine Sulfate (Levsin, Hyomax-Sl) 0.25 mg PO ONCE ONE Stop: 04/29/18 01:33 Last Admin: 04/29/18 01:36 Dose: 0.25 mg Sodium Chloride (Ns) 1,000 mls @ 0 mls/hr IV EDNOW ONE; Wide Open PRN Reason: Protocol Stop: 04/29/18 01:06 Last Admin: 04/29/18 01:12 Dose: 1,000 mls Famotidine/Sodium Chloride (Pepcid 20 Mg (Premix)) 50 mls @ 200 mls/hr IV EDNOW ONE Stop: 04/29/18 01:19 Last Admin: 04/29/18 01:11 Dose: 50 mls Ketorolac Tromethamine (Toradol) 15 mg IVP EDNOW ONE Stop: 04/29/18 01:33 Last Admin: 04/29/18 01:36 Dose: 15 mg Lidocaine (Lidocaine 2% Viscous) 15 ml PO ONCE ONE Stop: 04/29/18 01:33 Last Admin: 04/29/18 01:37 Dose: 15 ml Ondansetron HCl (Zofran) 4 mg IVP EDNOW ONE Stop: 04/29/18 01:06 Last Admin: 04/29/18 01:11 Dose: 4 mg Ondansetron HCl (Zofran Odt 4 Mg Prepack#2) 1 btl TAKEHOME EDNOW ONE Stop: 04/29/18 02:19 Last Admin: 04/29/18 02:38 Dose: 1 btl Departure - Departure Disposition: Home, Routine, Self-Care Clinical Impression: Epigastric abdominal pain Nausea & vomiting Qualifiers: Vomiting type: unspecified Vomiting Intractability: non-intractable Qualified Code(s): R11.2 - Nausea with vomiting, unspecified Condition: Good Instructions: Ondansetron (By mouth), Acute Nausea and Vomiting (ED), Abdominal Pain (ED) Additional Instructions: Please follow up with your colonoscopy later today as planned. Referrals: Judd Franco MD [Primary Care Provider] - As per Instructions Dyllan Quarles MD [Medical Doctor] - As per Instructions
[2018-04-29] MEDS ORDERED: LIDOCAINE 2% VISCOUS 15 ML UDCUP PO ONE (01:32)
[2018-04-29] MEDS ORDERED: HYOSCYAMINE SULFATE 0.125 MG TAB PO ONE (01:32)
[2018-04-29] MEDS ORDERED: MAG HYDROX/AL HYDROX/SIMETH 30 ML UDCUP PO ONE (01:32)
[2018-04-29] MEDS ORDERED: KETOROLAC 15 MG/1 ML SDV IVP ONE (01:32)
[2018-04-29] MEDS ORDERED: KETOROLAC 15 MG/1 ML SDV ONE (01:33)
[2018-04-29] MEDS ORDERED: MAG HYDROX/AL HYDROX/SIMETH 30 ML UDCUP ONE (01:34)
[2018-04-29] MEDS ORDERED: ONDANSETRON 4MG PREPACK#2 BTL TAKEHOME ONE (02:18)
[2018-04-29 02:42] VITALS: BP 131/74
== END 2018-04-29 02:42 | disposition home or self-care (01) ==
DX: R10.13 Epigastric pain (principal); R11.2 Nausea with vomiting, unspecified; E86.9 Volume depletion, unspecified
CPT/HCPCS: 96365; J1885; J2405